=== PATIENT | male | born 1935 | race Caucasian/White ===

== ENCOUNTER 2017-03-18 07:25 | Day surgery (SDC) | payer OTHER ==
[2017-03-18] MEDS ORDERED: NS 500 ML IV 500 ML IV ONE (07:59)
[2017-03-18] MEDS: TETRACAINE 0.5% OPHTH 1 DOSE AFFEYE ONE ×2 (08:15→10:05)
[2017-03-18] MEDS: VIGAMOX 0.5% OPHTH 1 DOSE AFFEYE ONE ×5 (08:16→10:55)
[2017-03-18] MEDS: PROLENSA OPHTH 1 DOSE AFFEYE ONE (08:23)
[2017-03-18] MEDS: ALPHAGAN-P OPHTH 1 DOSE AFFEYE ONE (08:24)
[2017-03-18] MEDS: AK-DILATE 2.5% OPHTH 1 DOSE OP ONE ×3 (08:25→08:27)
[2017-03-18] MEDS: CYCLOGYL 1% OPHTH 1 DOSE OP ONE ×3 (08:25→08:27)
[2017-03-18] MEDS: MYDRIACIL OPHTH 1 DOSE AFFEYE ONE ×3 (08:25→08:27)
[2017-03-18] MEDS: NS 1/2 1000 ML IV 500 ML IV ONE (08:30)
[2017-03-18] MEDS: AK-DILATE 10% OPHTH 1 DOSE AFFEYE ONE (09:01)
[2017-03-18] MEDS: BETADINE OPHTH SOLN 5% EACHEYE ONE (10:05)
[2017-03-18] MEDS: NS 500 ML IV 500 ML IV ONE (10:05)
[2017-03-18] MEDS ORDERED: DIPRIVAN VIAL ONE (10:07)
[2017-03-18] MEDS: XYLOCAINE-MPF 1% IJ ONE ×2 (10:20→10:33)
[2017-03-18] MEDS: ADRENALINE CHL INJ IJ ONE ×2 (10:20→10:33)
[2017-03-18] MEDS: DUOVISC IO ONE ×2 (10:21→10:33)
[2017-03-18] MEDS: BSS OPHTH (PLAIN) 500 ML with VANCOMYCIN HCL 500 MG VIAL 25 MG, ADRENALINE CHL INJ 1 MG IR ONE ×3 (10:22)
[2017-03-18 11:21] VITALS: BP 158/75
== END 2017-03-18 11:20 | disposition home or self-care (01) ==
LOC: SURG1 07:25
PROVIDERS: ATTEND Ophthalmology
PROC: 08U007Z Supplement of Right Eye with Autologous Tissue Substitute, Open Approach (ICD-10-PCS; principal; 2017-03-18 10:30)
PROC: 08BSXZX Excision of Right Conjunctiva, External Approach, Diagnostic (ICD-10-PCS; principal; 2017-03-18 10:30)
PROC: 08DJ3ZZ Extraction of Right Lens, Percutaneous Approach (ICD-10-PCS; principal; 2017-03-18 10:30)
PROC: 08RJ3JZ Replacement of Right Lens with Synthetic Substitute, Percutaneous Approach (ICD-10-PCS; principal; 2017-03-18 10:30)
DX: H25.11 Age-related nuclear cataract, right eye (principal); H25.011 Cortical age-related cataract, right eye; H25.041 Posterior subcapsular polar age-related cataract, right eye; H52.221 Regular astigmatism, right eye; H11.001 Unspecified pterygium of right eye
CPT/HCPCS: 99100; A4217; J0170; J3370; J3490

== ENCOUNTER 2017-04-08 08:30 | Day surgery (SDC) | payer OTHER ==
[2017-04-08] MEDS ORDERED: TETRACAINE 0.5% OPHTH 1 DOSE AFFEYE ONE ×2 (08:40→10:55)
[2017-04-08] MEDS ORDERED: VIGAMOX 0.5% OPHTH 1 DOSE AFFEYE ONE ×5 (08:41→11:21)
[2017-04-08] MEDS ORDERED: PROLENSA OPHTH 1 DOSE AFFEYE ONE (08:52)
[2017-04-08] MEDS ORDERED: ALPHAGAN-P OPHTH 1 DOSE AFFEYE ONE (08:53)
[2017-04-08] MEDS ORDERED: CYCLOGYL 1% OPHTH 1 DOSE OP ONE ×3 (08:54→08:56)
[2017-04-08] MEDS ORDERED: MYDRIACIL OPHTH 1 DOSE AFFEYE ONE ×3 (08:54→08:56)
[2017-04-08] MEDS ORDERED: AK-DILATE 2.5% OPHTH 1 DOSE OP ONE ×3 (08:54→08:56)
[2017-04-08] MEDS ORDERED: NS 500 ML IV 500 ML IV ONE (09:01)
[2017-04-08] MEDS ORDERED: DIPRIVAN VIAL ONE (09:45)
[2017-04-08] MEDS ORDERED: VERSED ONE (09:45)
[2017-04-08] MEDS ORDERED: BETADINE OPHTH SOLN 5% EACHEYE ONE (10:55)
[2017-04-08] MEDS ORDERED: XYLOCAINE-MPF 1% IJ ONE (11:03)
[2017-04-08] MEDS ORDERED: ADRENALINE CHL INJ IJ ONE (11:03)
[2017-04-08] MEDS ORDERED: DUOVISC IO ONE (11:03)
[2017-04-08] MEDS ORDERED: BSS OPHTH (PLAIN) 500 ML with VANCOMYCIN HCL 500 MG VIAL 25 MG, ADRENALINE CHL INJ 1 MG IR ONE ×3 (11:03)
[2017-04-08 11:36] VITALS: BP 156/80
== END 2017-04-08 11:36 | disposition home or self-care (01) ==
LOC: SURG1 08:30
PROVIDERS: ATTEND Ophthalmology
PROC: 08RK3JZ Replacement of Left Lens with Synthetic Substitute, Percutaneous Approach (ICD-10-PCS; principal; 2017-04-08 14:15)
PROC: 08BTXZX Excision of Left Conjunctiva, External Approach, Diagnostic (ICD-10-PCS; principal; 2017-04-08 14:15)
PROC: 08U107Z Supplement of Left Eye with Autologous Tissue Substitute, Open Approach (ICD-10-PCS; principal; 2017-04-08 14:15)
PROC: 08DK3ZZ Extraction of Left Lens, Percutaneous Approach (ICD-10-PCS; principal; 2017-04-08 14:15)
DX: H25.12 Age-related nuclear cataract, left eye (principal); H25.012 Cortical age-related cataract, left eye; H25.042 Posterior subcapsular polar age-related cataract, left eye; H52.222 Regular astigmatism, left eye; H11.002 Unspecified pterygium of left eye
CPT/HCPCS: 99100; A4217; J0170; J2250; J3370; J3490

== ENCOUNTER 2017-12-05 09:19 | Emergency (ER) | payer OTHER ==
[2017-12-05 09:25] VITALS: BP 164/88; BMI 28.8
--- NOTE | 2017-12-05 09:47 | DR.EXTPAIN ---
HPI - Time seen Time seen: 09:36 - PCP Primary Care Physician: LACIE LAZCANO - Complaint/Symptoms Chief Complaint:: PT C/O RIGHT HAND PAIN SWELLING TO THE TOP OF THE HAND AROUND THE FIRST AND SECOND KNUCKLE AND INDEX FINGER AND HE HAS SOME BRUSES TO THE PALM AREA ,, BR Self Treatment fo Chief Complaint: PT C/O USING POST DIGGERS AND HE INJURED HIM SELF USING THEM AND HE HIT A WOODEN GATE.. BR - Nurses notes reviewed Nurses Notes Review: Yes - Source History Provided: Patient - Mode of arrival Mode of Arrival: Ambulatory - Timing Onset of Chief Complaint: 12/04/17 - Associated signs and symptoms Associated Signs and Symptoms: None, Swelling, Bruising PMH - PMH Past Medical History: No Past Surgical History: Yes Surgical History: Unknown Past Surgical History Comment: CATARACT, AND HERNIA . - Family History History of Family Medical Conditions: No - Social History Does patient currently use any type of tobacco product: No Have you used tobacco products in the last 12 months: No Type of Tobacco Use: None Does any household member use tobacco: No Alcohol Use: None Do you use any recreational Drugs:: No Lives With: Family Lives Where: Home - infectious screening In the last 2 months have you had wt loss of >10#?: NO Have you had fever, night sweats or hemotysis?: No Have you traveled outside the country in the last 6 months?: No Isolation: Standard ROS - Review of Systems Constitutional: No Symptoms Reported Eyes: No Symptoms Reported ENTM: No Symptoms Reported Respiratoy: No Symptoms Reported Cardiovascular: No Symptoms Reported Gastrointestinal/Abdominal: No Symptoms Reported Genitourinary: No Symptoms Reported Neurological: No Symptoms Reported Musculoskeletal: Joint Pain (Rt. MCP joints), Joint Swelling (2nd MCP joint, rt. ) Integumentary: Bruises (rt. hand) Hematologic/Lymphatic: No Symptoms Reported Endocrine: No Symptoms Reported Psychiatric: No Symptoms Reported All Other Systems: Reviewed and Negative PE - Vital Signs Vitals: Temperature 96.8 F Pulse Rate 59 Respiratory Rate 20 Blood Pressure 164/88 O2 Sat by Pulse Oximetry 98 - General Limitations: No Limitations General Appearance: Alert, In No Apparent Distress - Head Head Exam: Normal Inspection - Eyes Eye exam: Normal Appearance - ENT ENT Exam: Normal Exam - Neck Neck Exam: Normal Inspection - Chest Chest Inspection: Normal Inspection - Respiratory Respiratory Exam: Normal Lung Sounds Bilat - Cardiovascular Cardiovascular Exam: Regular Rate, Normal Rhythm - Abdominal Exam Abdominal Exam: Normal Inspection, Normal Bowel Sounds, Soft - Upper Extremities Shoulder Exam: Normal Inspection, Full ROM Arm Exam: Normal Inspection, Full ROM Elbow Exam: Normal Inspection, Full ROM Forearm Exam: Normal Inspection, Full ROM Hand Exam: Tenderness (rt. 2nd MCP joint), Swelling (rt. 2nd MCP joint.) Neurosensory Exam: Normal Exam - Back Back Exam: Normal Inspection - Neurological Neurological Exam: Alert, Oriented X3, CN II-XII Intact - Psychiatric Psychiatric Exam: Normal Affect, Normal Mood - Skin Skin Exam: Warm, Dry, Intact, Normal Color ROR - XRAY XRAY Interpreted by: Self (Rt. hand x-ray: a chip fracture at the base of the 2nd proximal phalanx. It is not displaced.) - Diagnosis Discharge Problem: Fracture phalanges, hand - Discharge Plan Disposition: HOME, SELF-CARE Condition: Stable - Follow ups/Referrals Follow ups/Referrals: MATTHEW MESA [Primary Care Provider] - 3 days - Instructions
--- NOTE | 2017-12-05 10:02 | RAD ---
Examination: Right hand, three views History: Trauma, 2nd and 3rd digits Findings: There is an acute intra-articular fracture involving the base of the proximal phalanx, inde x finger. The fracture extends into the 2nd MCP joint. No displacement or deformity is noted although soft tissue swelling is present, as expected. Degenerative changes are present in the wrist. Very sm all metallic foreign fragments are present in the thumb. Impression: Intra-articular fracture involves the proximal phalanx of the right index finger. Reported By:
== END 2017-12-05 10:30 | disposition home or self-care (01) ==
LOC: ER 09:19
DX: S62.610A Displaced fracture of proximal phalanx of right index finger, initial encounter for closed fracture (principal); X58.XXXA Exposure to other specified factors, initial encounter; Y92.9 Unspecified place or not applicable
CPT/HCPCS: 73130; 99282

== ENCOUNTER → 2017-12-15 | Outpatient (CLI) | payer OTHER ==
[2017-12-05 09:25] VITALS: BP 164/88
--- NOTE | 2017-12-15 10:44 | RAD ---
HISTORY: Right index finger fracture Study: Right hand: Three views Comparison: 12/05/2017 Findings: There is again noted to be a fracture through the base of the proximal phalanx of the right index fin [place]. This is minimally distracted. It is unchanged in position or alignment. There is severe degen erative change in the scaphotrapezium and scaphotrapezoid articulation. Subchondral cyst formation i s noted in the proximal pole of the scaphoid. Moderate degenerative changes noted in the 1st carpal metacarpal joint. [id number]-[id number] is noted in other joints. Mild is noted in the interphalangeal j oint of the thumb. There is a small bony exostosis involving the shaft of the proximal phalanx of th e 5th digit, unchanged. IMPRESSION: 1. Fracture of the base of the proximal phalanx of the index finger as described above. This shows no significant change when compared to the prior examination. 2. Degenerative change as noted. Reported By:
== END ==
LOC: RAD 09:16
PROVIDERS: ATTEND Nurse Practitioner Family
DX: S62.640D Nondisplaced fracture of proximal phalanx of right index finger, subsequent encounter for fracture with routine healing (principal); X58.XXXD Exposure to other specified factors, subsequent encounter
CPT/HCPCS: 73130

== ENCOUNTER 2018-12-02 11:44 | Inpatient (IN) ==
[2018-12-02 11:49] VITALS: BMI 25.7
[2018-12-02 12:38] LABS: BILIRUBIN,URINE NEGATIVE (NEGATIVE); BLOOD/HEMOGLOBIN,URINE 3+ (NEGATIVE); GLUCOSE, URINE NEGATIVE (NEGATIVE); KETONES,URINE NEGATIVE (NEGATIVE); LEUKOCYTE ESTERASE ,URINE NEGATIVE (NEGATIVE); NITRITES,URINE NEGATIVE (NEGATIVE); PROTEIN,URINE 1+ (NEGATIVE); UROBILINOGEN,URINE NORMAL (NORMAL)
[2018-12-02 12:46] LABS: APPEARANCE,URINE CLEAR (CLEAR); BACTERIA,URINE NEGATIVE /HPF (NEGATIVE); COLOR,URINE YELLOW (YELLOW); SQUAMOUS EPITHELIAL CELL,UR RARE /HPF (NEGATIVE)
--- NOTE | 2018-12-02 14:06 | DR.GENAD ---
HPI Time Seen Time Seen by Provider: 12/02/18 13:56 PCP Primary Care Physician: LACIE LAZCANO HPI Comment HPI Comment: PATIENT IS 82YR OLD WHITE MALE WHO HAVE ENLARGE PROSTATE AND WAS HAVING DECREASE URINE OUT PUT AND DRIBBLING. CT DONE AND LABS DONE. BLADDER WAS DISTENDED WITH URINE AND CR. WAS ELEVATED. HE IS HERE FOR FURTHER EVALUATION FOR POST OBSTRUCTIVE RENAL FAILURE. Complaint/Symptoms Chief Complaint Doctors Comments: URINARY RETENSION AND ABNORMAL CT AND LABS DONE OUT PATIENT. Chief Complaint:: PT SENT OVER TO BE EVALUATED FOR HIS ABN CT OF ABD AND PELVIS ,,, SEE REPORT Self Treatment fo Chief Complaint: PT C/O HAVING PRESSURE TO HIS ABD AND TROUBLE URINATING , PT C/O FREQUENCY AND DRIBBLING ,BR Nurses notes reviewed Nurses Notes Review: Yes Source History Provided: Patient and Family Member Mode of Arrival Mode of Arrival: Ambulatory Timing Onset of Chief Complaint: 11/25/18 Came on: Gradually Duration Duration: Constant Duration: Weeks Severity Severity: Severe Modifying Factors Worsens:: WITH DECREASE URINATION, PAIN WORSE. PMH PMH Past Medical History: No Past Surgical History: Yes Past Surgical History Comment: HERNIA REPAIR Family History History of Family Medical Conditions: Yes Social History Does patient currently use any type of tobacco product: No Have you used tobacco products in the last 12 months: No Type of Tobacco Use: None Does any household member use tobacco: No Alcohol Use: None Do you use any recreational Drugs:: No Lives With: Family Lives Where: Home infectious screening In the last 2 months have you had wt loss of >10#?: NO Have you had fever, night sweats or hemotysis?: No Have you traveled outside the country in the last 6 months?: No Isolation: [place]/Negative Pressure ROS Review of Systems Constitutional: No Symptoms Reported Eyes: No Symptoms Reported ENTM: No Symptoms Reported Respiratoy: No Symptoms Reported Cardiovascular: No Symptoms Reported Gastrointestinal/Abdominal: Abdominal Pain Genitourinary: Frequency and Other (DECREASE URINATION.) Neurological: No Symptoms Reported Musculoskeletal: No Symptoms Reported Integumentary: No Symptoms Reported Hematologic/Lymphatic: No Symptoms Reported Endocrine: No Symptoms Reported Psychiatric: No Symptoms Reported All Other Systems: Reviewed and Negative PE Vital Signs Vitals: Temperature 98.5 F Pulse Rate [Bilateral] 77 Pulse Rate 69 Respiratory Rate 18 Blood Pressure [Left Arm] 133/77 Blood Pressure 199/87 O2 Sat by Pulse Oximetry 97 General Limitations: No Limitations General Appearance: Alert and In No Apparent Distress Head Head Exam: Normal Inspection Eyes Eye exam: Normal Appearance ENT ENT Exam: Normal Exam External Ear Exam: Normal External Inspection TM/Canal Exam: Bilateral: Normal Nose Exam: Normal Nose Exam Mouth Exam: Normal Inspection Throat Exam: Normal Inspection Neck Neck Exam: Normal Inspection Chest Chest Inspection: Normal Inspection Respiratory Respiratory Exam: Normal Lung Sounds Bilat Respiratory Exam: Bilateral: Clear to Auscultation Cardiovascular Cardiovascular Exam: Regular Rate and Normal Rhythm Abdominal Exam Abdominal Exam: Normal Bowel Sounds, Soft and Tenderness Abdominal Tenderness: RLQ, LLQ and Suprapubic Extremities Extremities Exam: Normal Inspection Back Back Exam: Normal Inspection Neurologic Neurological Exam: Alert and Oriented X3 Psychiatric Psychiatric Exam: Normal Affect and Normal Mood Skin Skin Exam: Warm, Dry, Intact and Normal Color MDM Additional Information Additional Information Obtained From: Family Differential Diagnosis Differential Diagnosis: URINARY RETENSION, ACUTE RENAL FAILURE/POST OBSTRUCTIVE, ENLARGE PROSTATE. COURSE Treatment Treatment: SEE ORDERS. Consultation Consultation Comments: UROLOGIST DR. ATKINSON WILL FOLLOW UP PATIENT WHEN RENAL FAILURE RESOLVE. TO KEEP SHORT CATH IN TILL THAT TIME. DR. DU WILL ADMIT PATIENT. Education/Counseling Education/Counseling: Patient and Family Educated On: Diagnosis ROR Labs Reviewed Laboratory Results Reviewed?: Yes Result Diagrams: 12/04/18 04:20 12/04/18 04:20 Laboratory: WBC 8.9 X10^3/uL (3.6-10.0) 12/04/18 04:20 RBC 4.57 X10^6/uL (4.7-6.0) L 12/04/18 04:20 Hgb 13.6 g/dL (13.5-18.0) 12/04/18 04:20 Hct 40.7 % (42.0-54.0) L 12/04/18 04:20 MCV 89.0 fL (80.0-100.0) 12/04/18 04:20 MCH 29.8 pg (27.0-34.0) 12/04/18 04:20 MCHC 33.4 g/dL (33.0-35.0) 12/04/18 04:20 RDW 14.7 % (11.6-16.5) 12/04/18 04:20 Plt Count 177 X10^3/uL (150.0-450.0) 12/04/18 04:20 MPV 9.7 fL (7.4-11.0) 12/04/18 04:20 Neut % (Auto) 69.2 % (42.0-75.0) 12/04/18 04:20 Lymph % (Auto) 11.6 % (21.0-51.0) L 12/04/18 04:20 [place] % (Auto) 14.9 % (0.0-13.0) H 12/04/18 04:20 Eos % (Auto) 3.9 % (0.9-2.9) H 12/04/18 04:20 Baso % (Auto) 0.4 % (0.2-1.0) 12/04/18 04:20 Neut # (Auto) 6.1 x10^3/uL (2.2-4.8) H 12/04/18 04:20 Lymph # (Auto) 1.0 X10^3/uL (1.3-2.9) L 12/04/18 04:20 [place] # (Auto) 1.3 x10^3/uL (0.3-0.8) H 12/04/18 04:20 Eos # (Auto) 0.3 x10^3/uL (0.0-0.2) H 12/04/18 04:20 Baso # (Auto) 0.0 X10^3/uL (0.0-0.1) 12/04/18 04:20 Absolute Nucleated RBC 0.1 /100WBC 12/04/18 04:20 Sodium 140 mmol/L (136-145) 12/04/18 04:20 Corrected Sodium TNP 12/04/18 04:20 Potassium 4.2 mmol/L (3.5-5.1) 12/04/18 04:20 Chloride 104 mmol/L (98-107) 12/04/18 04:20 Carbon Dioxide 28.8 mmol/L (21-32) 12/04/18 04:20 BUN 20 mg/dL (7-18) H 12/04/18 04:20 Creatinine 1.17 mg/dL (0.70-1.30) 12/04/18 04:20 Est GFR (MDRD) Af Amer > 60 (>60) 12/04/18 04:20 Est GFR (MDRD) Non-Af > 60 (>60) 12/04/18 04:20 Glucose 103 mg/dL (65-99) H 12/04/18 04:20 Calcium 8.4 mg/dL (8.5-10.1) L 12/04/18 04:20 Corrected Calcium 9.4 mg/dL (8.5-10.1) 12/04/18 04:20 Total Bilirubin 0.30 mg/dL (0.2-1.0) 12/04/18 04:20 AST 17 Units/L (15-37) 12/04/18 04:20 ALT 13 Units/L (12-78) 12/04/18 04:20 Alkaline Phosphatase 51 Units/L (46-116) 12/04/18 04:20 Lactate Dehydrogenase 195 Units/L (85-227) 12/03/18 04:00 Total Protein 6.5 g/dL (6.4-8.2) 12/04/18 04:20 Albumin 2.8 g/dL (3.4-5.0) L 12/04/18 04:20 Globulin 3.7 g/dL (2.5-4.5) 12/04/18 04:20 Albumin/Globulin Ratio 0.8 Ratio (1.1-2.1) L 12/04/18 04:20 Triglycerides 74 mg/dL (0-150) 12/03/18 04:00 Cholesterol 166 mg/dL (0-200) 12/03/18 04:00 LDL Cholesterol, Calc 84 mg/dL (0-100) 12/03/18 04:00 HDL Cholesterol 67 mg/dL (40-60) H 12/03/18 04:00 Cholesterol/HDL Ratio 2.5 (0.0-5.0) 12/03/18 04:00 Total PSA 7.60 ng/mL (0.13-4.0) H 12/03/18 04:00 Free T4 1.09 ng/dL (0.76-1.46) 12/03/18 04:00 TSH 3rd Generation 1.630 uIU/mL (0.358-3.74) 12/03/18 04:00 Specimen Type Catherized urine 12/03/18 03:35 Urine Color Red (YELLOW) 12/03/18 03:35 Urine Appearance Cloudy (CLEAR) 12/03/18 03:35 Urine pH 8.0 (5.0 - 8.0) 12/03/18 03:35 Ur Specific [place] 1.015 (1.000-1.030) 12/03/18 03:35 Urine Protein 4+ (NEGATIVE) 12/03/18 03:35 Urine Glucose (UA) Negative (NEGATIVE) 12/03/18 03:35 Urine Ketones Negative (NEGATIVE) 12/03/18 03:35 Urine Occult Blood 5+ (NEGATIVE) 12/03/18 03:35 Urine Nitrite Negative (NEGATIVE) 12/03/18 03:35 Urine Bilirubin Negative (NEGATIVE) 12/03/18 03:35 Urine Urobilinogen Normal (NORMAL) 12/03/18 03:35 Ur Leukocyte Esterase 1+ (NEGATIVE) 12/03/18 03:35 Urine RBC Tntc /HPF (NONE SEEN) 12/03/18 03:35 Urine WBC 0-2 /HPF (NONE SEEN) 12/03/18 03:35 Ur Squamous Epith Cells Negative /HPF (NEGATIVE) 12/03/18 03:35 Urine Bacteria Negative /HPF (NEGATIVE) 12/03/18 03:35 Ur Culture Indicated? No/not indicated 12/03/18 03:35 XRAY XRAY Interpreted by: Radiologist XRAY Findings: REPORT ON RECORD DISCUSS WITH PATIENT AND HIS AND WAS NOTED. Instructions Instructions: Fall Prevention in the Home, Adult, [id number] Indwelling Urinary Catheter Care, Adult, Amlg-jx-Rvvy Hydronephrosis Prostatitis, [id number]-[id number] Acute Urinary Retention, Male, Odeg-pj-Paoa Pulmonary Nodule, Dgsc-fz-Kuvh Forms: Patient Portal
[2018-12-02] MEDS ORDERED: NS 1000 ML 1,000 ML ONE (14:22)
[2018-12-02 15:03] LABS: BASOPHILS % (AUTO) 0.4 % (0.2-1.0); EOSINOPHILS # (AUTO) 0.1 x10^3/uL (0.0-0.2); EOSINOPHILS % (AUTO) 0.7 % (0.9-2.9); HEMATOCRIT 38.9 % (42.0-54.0); HEMOGLOBIN 13.1 g/dL (13.5-18.0); LYMPHOCYTES # (AUTO) 0.6 X10^3/uL (1.3-2.9); LYMPHOCYTES % (AUTO) 6.2 % (21.0-51.0); MEAN CORPUSCULAR HGB CONC 33.6 g/dL (33.0-35.0); MEAN CORPUSCULAR VOLUME 89.1 fL (80.0-100.0); MONOCYTES # (AUTO) 0.7 x10^3/uL (0.3-0.8); MONOCYTES % (AUTO) 7.4 % (0.0-13.0); NEUTROPHILS # (AUTO) 8.4 x10^3/uL (2.2-4.8); NEUTROPHILS % (AUTO) 85.3 % (42.0-75.0); PLATELET COUNT 185 X10^3/uL (150.0-450.0); RED BLOOD COUNT 4.37 X10^6/uL (4.7-6.0); RED CELL DISTRIBUTION WIDTH 14.4 % (11.6-16.5); WHITE BLOOD COUNT 9.9 X10^3/uL (3.6-10.0)
[2018-12-02] MEDS: NS 1000 ML 1,000 ML IV SCH (16:20)
[2018-12-02] MEDS: RESTORIL CAP 15 MG PO PRN (23:46)
[2018-12-03 03:40] LABS: BILIRUBIN,URINE NEGATIVE (NEGATIVE); BLOOD/HEMOGLOBIN,URINE 5+ (NEGATIVE); GLUCOSE, URINE NEGATIVE (NEGATIVE); KETONES,URINE NEGATIVE (NEGATIVE); LEUKOCYTE ESTERASE ,URINE 1+ (NEGATIVE); NITRITES,URINE NEGATIVE (NEGATIVE); PROTEIN,URINE 4+ (NEGATIVE); UROBILINOGEN,URINE NORMAL (NORMAL)
[2018-12-03 03:53] LABS: APPEARANCE,URINE CLOUDY (CLEAR); COLOR,URINE RED (YELLOW)
[2018-12-03 03:54] LABS: RBC,URINE TNTC /HPF (NONE SEEN); SQUAMOUS EPITHELIAL CELL,UR NEGATIVE /HPF (NEGATIVE)
[2018-12-03 03:55] LABS: BACTERIA,URINE NEGATIVE /HPF (NEGATIVE)
[2018-12-03] MEDS: NS 1000 ML 1,000 ML IV SCH ×2 (04:29→18:03)
[2018-12-03 05:23] LABS: BASOPHILS % (AUTO) 0.2 % (0.2-1.0); EOSINOPHILS # (AUTO) 0.2 x10^3/uL (0.0-0.2); EOSINOPHILS % (AUTO) 1.8 % (0.9-2.9); HEMOGLOBIN 13.6 g/dL (13.5-18.0); LYMPHOCYTES # (AUTO) 0.7 X10^3/uL (1.3-2.9); LYMPHOCYTES % (AUTO) 7.9 % (21.0-51.0); MEAN CORPUSCULAR HGB CONC 33.2 g/dL (33.0-35.0); MEAN CORPUSCULAR VOLUME 90.3 fL (80.0-100.0); MEAN PLATELET VOLUME 9.1 fL (7.4-11.0); MONOCYTES # (AUTO) 1.1 x10^3/uL (0.3-0.8); NEUTROPHILS # (AUTO) 6.8 x10^3/uL (2.2-4.8); NEUTROPHILS % (AUTO) 77.1 % (42.0-75.0); PLATELET COUNT 184 X10^3/uL (150.0-450.0); RED BLOOD COUNT 4.54 X10^6/uL (4.7-6.0); RED CELL DISTRIBUTION WIDTH 14.6 % (11.6-16.5); WHITE BLOOD COUNT 8.8 X10^3/uL (3.6-10.0)
[2018-12-03 05:40] LABS: CALCIUM 8.6 mg/dL (8.5-10.1); CARBON DIOXIDE 28.7 mmol/L (21-32); COR CA(FOR HYPOALB) 9.4 mg/dL (8.5-10.1); CREATININE 1.75 mg/dL (0.70-1.30); TOTAL PROTEIN 6.8 g/dL (6.4-8.2)
[2018-12-03] MEDS: MICRO K EXTEN CAP 10 MEQ PO SCH (08:10)
[2018-12-03] MEDS: SYNTHROID 50 mcg TAB PO SCH (08:10)
[2018-12-03] MEDS ORDERED: HYDROCHLOROTHIAZIDE 25 MG TAB PO SCH (09:00)
[2018-12-03] MEDS ORDERED: VITAMIN D (1.25MG) PO SCH (09:00)
[2018-12-03 09:09] LABS: CHOL/HDL RATIO 2.5 (0.0-5.0); FREE T4 (FREE THYROXINE) 1.09 ng/dL (0.76-1.46); TSH (3RD GENERATION) 1.63 uIU/mL (0.358-3.74)
[2018-12-03 09:11] LABS: TOTAL PSA 7.6 ng/mL (0.13-4.0)
[2018-12-03] MEDS: ROCEPHIN VIAL 1 GRAM IVP SCH (09:59)
--- NOTE | 2018-12-03 18:36 | DR.H&P ---
H&P - History & Physical for Day of: H&P Date: 12/02/18 - Chief Complaint Chief Complaint: LOWER ABDOMINAL PAIN, "DRIBBLE" DECREASED URINE OUTPUT, ELEVATED BLOOD PRESSURE - History of Present Illness History of Present Illness: 82 WM ER ADMISSION AFTER PRESENTING WITH CO LOWER ABDOMINAL PAIN AND PRESSURE WITH DECREASED URINE OUTPT. PT STATES DRIBBLING HAS BEEN WORSE FOR 1-2 WEEKS, BECAME SEVERE ONE DAY AGO AND PCP YESSENIA MESA ORDERED CT ABD/PELVIS. PT HAD BILATERAL HYDRONEPHROSIS DUE TO ENLARGED PROSTATE. PT HAD ELEVATE BP AND ACUTE RENAL INSUFFICIENCY WITHOUT HX. PT HAD PMH OF HYPOTHYROIDISM. PT ADMITTED FOR TREATMENT OF ACUTE OBSTRUCTIVE HYDRONEPHROSIS AND EVALUATION OF ABNORMAL RADIOLOGICAL FINDINGS. - Past Medical History Past Medical History: Arthritis, Hypothyroidism - Past Surgical History Surgical History: Bowel Resection - Family History Family Medical History: Cancer, [place], Coronary Artery Disease, Hypertension - Social History Does patient currently use any type of tobacco product: No Have you used tobacco products in the last 12 months: No Type of Tobacco Use: None Does any household member use tobacco: No Alcohol Use: None Drug Use: None - Medications Home Medications: No Known Drug Allergies Allergy (Verified 12/02/18 11:45) CONTINUE taking the following medications ciprofloxacin HCl 500 mg PO BID 12/02/18 [History] cyanocobalamin (vitamin B-12) 1 ml IM MONTHLY 12/02/18 [History] ergocalciferol (vitamin D2) [Vitamin D2] 50,000 tab-cap PO DAILY 12/02/18 [His tory] hydrochlorothiazide 25 mg PO DAILY 12/02/18 [History] levothyroxine 50 mcg PO DAILY 12/02/18 [History] potassium chloride 10 meq PO DAILY 12/02/18 [History] - Review of Systems Constitutional: Weakness Eyes: No Symptoms Reported ENT: No Symptoms Reported Respiratory: No Symptoms Reported Cardiovascular: Other (ELEVATED BLOOD PRESSURE) Gastrointestinal: No Symptoms Reported Genitourinary: No Symptoms Reported Musculoskeletal: No Symptoms Reported Skin: No Symptoms Reported Neurological: Weakness - Physical Exam Vital Signs: Temperature 97.5 F Pulse Rate [Bilateral] 72 Pulse Rate 69 Respiratory Rate 20 Blood Pressure [Left Arm] 139/86 Blood Pressure 199/87 O2 Sat by Pulse Oximetry 97 Oriented: Normal Eyes: Normal Ear: Normal Nose: Normal Throat: Normal Respiratory: RLL Diminished, LLL Diminished Cardiovascular: Normal : Normal Auscultation: Bowel Sounds: Normal Palpation: Normal Tenderness: Suprapubic, Moderate Skin: Normal Musculoskeletal: Back:Thoracic, Back:Lumbar Psychiatric: Normal Mood Description: Calm Speech Pattern: Clear, Appropriate - Assessment/Plan (1) Acute renal insufficiency Status: Acute (2) Hydronephrosis Status: Acute Plan: ADMIT, SHORT CATH. STRICT I&OS, GENTLE IV HYDRATION AND ENCOURAGE PO HYDRATION. BP CONTROL, REVIEWED CT ABD/PELVIS WITH PT. OBTAIN PSA, FLP, TSH FREE T4 (3) Prostatitis, acute Status: Acute (4) Urinary retention with incomplete bladder emptying Status: Acute (5) Pulmonary nodule Status: Acute Plan: CT CHEST WITH CONTRAST (6) Lytic bone lesion of hip Status: Acute Plan: NUCLEAR BONE SCAN - Allergies Allergies/Adverse Reactions: Allergies Allergy/AdvReac Type Severity Reaction Status Date / Time No Known Drug Allergies Allergy Verified 12/02/18 11:45
--- NOTE | 2018-12-03 18:50 | PCM.PROG ---
Progress Note - Progress Note for Day of Date of Exam: 12/03/18 - Subjective Subjective: 82 WM ER ADMISSION WITH BILATERAL HYDRONEPHROSIS DUE TO PROSTATE OBSTRUCTION WITH ACUTE RENAL INSUFFICIENCY. PT HAS SHORT CATH PLACEMENT ON ADMISSION WITH GOOD URINE OUT PUT. PT REPORTS IMPROVING LOWER ABDOMINAL TENDERNESS. PT BUN 30, CREAT 1.75. ADDED PSA, FLP AND THYROID LABS AND REVIEWED RESULTS AND CT WITH PT AND FAMILY. WILL CONTINUE IV ROCEPHIN, OBTAIN CT CHEST WITH CONTRAST TO EVALUATE ABNORMAL LUNG FINDINGS ON CT. PT BP IS IMPROVED THIS AM. - Past Medical Family Social History Past Med/Fam/Surg Hx: No changes since H&P Allergies: Allergies No Known Drug Allergies Allergy (Verified 12/02/18 11:45) - Review of Systems ROS: No change since H&P - Vital Signs and I&O's Vital Signs: Temperature 97.5 F Pulse Rate [Bilateral] 72 Pulse Rate 69 Respiratory Rate 20 Blood Pressure [Left Arm] 139/86 Blood Pressure 199/87 O2 Sat by Pulse Oximetry 97 Intake and Output: Intake & Output 12/01/18 12/02/18 12/03/18 12/04/18 11:59 11:59 11:59 11:59 Intake Total 760 / 760 1720 / 1720 Output Total 6400 / 6400 1900 / 1900 Balance -5640 / -5640 -180 / -180 - Physical Exam Oriented: Normal Eyes: Normal Ear: Normal Nose: Normal Throat: Normal Respiratory: Diminished Cardiovascular: Normal : Normal Auscultation: Bowel Sounds: Normal Tenderness: Suprapubic, Mild Skin: Normal Musculoskeletal: Back:Thoracic, Back:Lumbar Psychiatric: Normal Mood Description: Calm Speech Pattern: Clear, Appropriate - Laboratory and Diagnostics Result Diagrams: 12/03/18 04:00 12/03/18 04:00 Labs: Laboratory WBC 8.8 X10^3/uL (3.6-10.0) 12/03/18 04:00 RBC 4.54 X10^6/uL (4.7-6.0) L 12/03/18 04:00 Hgb 13.6 g/dL (13.5-18.0) 12/03/18 04:00 Hct 41.0 % (42.0-54.0) L 12/03/18 04:00 MCV 90.3 fL (80.0-100.0) 12/03/18 04:00 MCH 30.0 pg (27.0-34.0) 12/03/18 04:00 MCHC 33.2 g/dL (33.0-35.0) 12/03/18 04:00 RDW 14.6 % (11.6-16.5) 12/03/18 04:00 Plt Count 184 X10^3/uL (150.0-450.0) 12/03/18 04:00 MPV 9.1 fL (7.4-11.0) 12/03/18 04:00 Neut % (Auto) 77.1 % (42.0-75.0) H 12/03/18 04:00 Lymph % (Auto) 7.9 % (21.0-51.0) L 12/03/18 04:00 [place] % (Auto) 13.0 % (0.0-13.0) 12/03/18 04:00 Eos % (Auto) 1.8 % (0.9-2.9) 12/03/18 04:00 Baso % (Auto) 0.2 % (0.2-1.0) 12/03/18 04:00 Neut # (Auto) 6.8 x10^3/uL (2.2-4.8) H 12/03/18 04:00 Lymph # (Auto) 0.7 X10^3/uL (1.3-2.9) L 12/03/18 04:00 [place] # (Auto) 1.1 x10^3/uL (0.3-0.8) H 12/03/18 04:00 Eos # (Auto) 0.2 x10^3/uL (0.0-0.2) 12/03/18 04:00 Baso # (Auto) 0.0 X10^3/uL (0.0-0.1) 12/03/18 04:00 Absolute Nucleated RBC 0.0 /100WBC 12/03/18 04:00 Sodium 140 mmol/L (136-145) 12/03/18 04:00 Corrected Sodium 141 mmol/L (136-145) 12/03/18 04:00 Potassium 4.0 mmol/L (3.5-5.1) 12/03/18 04:00 Chloride 103 mmol/L (98-107) 12/03/18 04:00 Carbon Dioxide 28.7 mmol/L (21-32) 12/03/18 04:00 BUN 30 mg/dL (7-18) H 12/03/18 04:00 Creatinine 1.75 mg/dL (0.70-1.30) H 12/03/18 04:00 Est GFR (MDRD) Af Amer 48 (>60) L 12/03/18 04:00 Est GFR (MDRD) Non-Af 40 (>60) L 12/03/18 04:00 Glucose 121 mg/dL (65-99) H 12/03/18 04:00 Calcium 8.6 mg/dL (8.5-10.1) 12/03/18 04:00 Corrected Calcium 9.4 mg/dL (8.5-10.1) 12/03/18 04:00 Total Bilirubin 0.50 mg/dL (0.2-1.0) 12/03/18 04:00 AST 14 Units/L (15-37) L 12/03/18 04:00 ALT 15 Units/L (12-78) 12/03/18 04:00 Alkaline Phosphatase 57 Units/L (46-116) 12/03/18 04:00 Lactate Dehydrogenase 195 Units/L (85-227) 12/03/18 04:00 Total Protein 6.8 g/dL (6.4-8.2) 12/03/18 04:00 Albumin 3.0 g/dL (3.4-5.0) L 12/03/18 04:00 Globulin 3.8 g/dL (2.5-4.5) 12/03/18 04:00 Albumin/Globulin Ratio 0.8 Ratio (1.1-2.1) L 12/03/18 04:00 Triglycerides 74 mg/dL (0-150) 12/03/18 04:00 Cholesterol 166 mg/dL (0-200) 12/03/18 04:00 LDL Cholesterol, Calc 84 mg/dL (0-100) 12/03/18 04:00 HDL Cholesterol 67 mg/dL (40-60) H 12/03/18 04:00 Cholesterol/HDL Ratio 2.5 (0.0-5.0) 12/03/18 04:00 Total PSA 7.60 ng/mL (0.13-4.0) H 12/03/18 04:00 Free T4 1.09 ng/dL (0.76-1.46) 12/03/18 04:00 TSH 3rd Generation 1.630 uIU/mL (0.358-3.74) 12/03/18 04:00 Specimen Type Catherized urine 12/03/18 03:35 Urine Color Red (YELLOW) 12/03/18 03:35 Urine Appearance Cloudy (CLEAR) 12/03/18 03:35 Urine pH 8.0 (5.0 - 8.0) 12/03/18 03:35 Ur Specific [place] 1.015 (1.000-1.030) 12/03/18 03:35 Urine Protein 4+ (NEGATIVE) 12/03/18 03:35 Urine Glucose (UA) Negative (NEGATIVE) 12/03/18 03:35 Urine Ketones Negative (NEGATIVE) 12/03/18 03:35 Urine Occult Blood 5+ (NEGATIVE) 12/03/18 03:35 Urine Nitrite Negative (NEGATIVE) 12/03/18 03:35 Urine Bilirubin Negative (NEGATIVE) 12/03/18 03:35 Urine Urobilinogen Normal (NORMAL) 12/03/18 03:35 Ur Leukocyte Esterase 1+ (NEGATIVE) 12/03/18 03:35 Urine RBC Tntc /HPF (NONE SEEN) 12/03/18 03:35 Urine WBC 0-2 /HPF (NONE SEEN) 12/03/18 03:35 Ur Squamous Epith Cells Negative /HPF (NEGATIVE) 12/03/18 03:35 Urine Bacteria Negative /HPF (NEGATIVE) 12/03/18 03:35 Ur Culture Indicated? No/not indicated 12/03/18 03:35 - Plan (1) Acute renal insufficiency Status: Acute Plan: GENTLE IV HYDRATION. STRITCT I & OS, BP MONITORING. REPEAT AM LABS (2) Hydronephrosis Status: Acute Plan: SHORT CATH. STRICT I&OS, GENTLE IV HYDRATION AND ENCOURAGE PO HYDRATION. BP CONTROL, REVIEWED CT ABD/PELVIS WITH PT. OBTAIN PSA, FLP, TSH FREE T4 (3) Prostatitis, acute Status: Acute (4) Urinary retention with incomplete bladder emptying Status: Acute (5) Pulmonary nodule Status: Acute Plan: CT CHEST WITH CONTRAST (6) Lytic bone lesion of hip Status: Acute Plan: NUCLEAR BONE SCAN
[2018-12-03] MEDS: RESTORIL CAP 15 MG PO PRN (21:12)
[2018-12-04 05:25] LABS: ALANINE AMINOTRANSFERASE 13 Units/L (12-78); ALBUMIN 2.8 g/dL (3.4-5.0); ALKALINE PHOSPHATASE 51 Units/L (46-116); ASPARTATE AMINO TRANSFERASE 17 Units/L (15-37); BLOOD UREA NITROGEN 20 mg/dL (7-18); CALCIUM 8.4 mg/dL (8.5-10.1); CARBON DIOXIDE 28.8 mmol/L (21-32); CHLORIDE 104 mmol/L (98-107); COR CA(FOR HYPOALB) 9.4 mg/dL (8.5-10.1); CREATININE 1.17 mg/dL (0.70-1.30); SODIUM 140 mmol/L (136-145); TOTAL PROTEIN 6.5 g/dL (6.4-8.2); eGFR NON BLACK RACES > 60 (>60)
[2018-12-04 05:35] LABS: BASOPHILS % (AUTO) 0.4 % (0.2-1.0); EOSINOPHILS # (AUTO) 0.3 x10^3/uL (0.0-0.2); EOSINOPHILS % (AUTO) 3.9 % (0.9-2.9); HEMATOCRIT 40.7 % (42.0-54.0); HEMOGLOBIN 13.6 g/dL (13.5-18.0); LYMPHOCYTES % (AUTO) 11.6 % (21.0-51.0); MEAN CORPUSCULAR HEMOGLOBIN 29.8 pg (27.0-34.0); MEAN CORPUSCULAR HGB CONC 33.4 g/dL (33.0-35.0); MEAN PLATELET VOLUME 9.7 fL (7.4-11.0); MONOCYTES # (AUTO) 1.3 x10^3/uL (0.3-0.8); MONOCYTES % (AUTO) 14.9 % (0.0-13.0); NEUTROPHILS # (AUTO) 6.1 x10^3/uL (2.2-4.8); NEUTROPHILS % (AUTO) 69.2 % (42.0-75.0); PLATELET COUNT 177 X10^3/uL (150.0-450.0); RED BLOOD COUNT 4.57 X10^6/uL (4.7-6.0); RED CELL DISTRIBUTION WIDTH 14.7 % (11.6-16.5); WHITE BLOOD COUNT 8.9 X10^3/uL (3.6-10.0)
--- NOTE | 2018-12-04 07:24 | CT ---
HISTORY: Pulmonary nodules Study: CT chest with contrast Comparison: CT abdomen pelvis 12/02/2018 Technique: Axial post-contrast images with coronal and sagittal reformats. Dose reduction procedures were used with mA/kv adjusted for body size. Findings: Examination of the mediastinum demonstrated no evidence for mediastinal masses, enlarged mediastinal or hilar adenopathy, aortic abnormality, or pleural effusions. Coronary artery calcifications are present. No chest wall or axillary abnormality is identified. Those portions of the upper abdominal organs visualized were within normal limits. The previously noted bilateral hydronephrosis is no longer present. Calcified pleural plaques are present on the right and the left suspicious for prior asbestos exposure. Multiple bilateral predominantly peripheral sub 0.5 cm pulmonary nodules are identified. The should be followed with CT examination in 6 months. There is also some tree-in-bud inflammatory change peripherally in the left upper lobe. No masses, alveolar infiltrates, areas of consolidation, peribronchial thickening, or bronchiectasis is identified. IMPRESSION: Bilateral pleural calcifications suggestive of the possibility of prior asbestos exposure Multiple bilateral sub 0.5 cm noncalcified pulmonary nodules for which follow-up chest CT in 6 months is recommended. Reported By:
[2018-12-04] MEDS: NS 1000 ML 1,000 ML IV SCH (08:02)
[2018-12-04] MEDS: ROCEPHIN VIAL 1 GRAM IVP SCH (08:03)
[2018-12-04] MEDS: SYNTHROID 50 mcg TAB PO SCH (08:03)
[2018-12-04] MEDS: MICRO K EXTEN CAP 10 MEQ PO SCH (08:03)
--- NOTE | 2018-12-04 16:16 | NM ---
HISTORY: Abdominal pain, swollen prostate Study: Nuclear medicine whole-body bone scan Comparison: None Technique: Whole body bone scintigraphy was performed in the anterior and posterior projection after the intravenous administration of 26.7 mCi of technetium 99 M MDP. Findings: Physiologic distribution of radiotracer is observed throughout the appendicular and axial skeleton. Mild radiotracer uptake seen within the shoulders, wrist, and sacroiliac joints likely represents degenerative change. No definite focal asymmetric areas of intense radiotracer uptake are appreciated within the left iliac wing corresponding to the sclerotic focus on prior CT of the abdomen and pelvis performed on December 02, 2018. Radiotracer uptake is noted within the urinary bladder consistent with excretion of the radiopharmaceutical. IMPRESSION: No gross abnormalities are appreciated as noted above. Reported By:
[2018-12-04 16:59] VITALS: BP 146/71
[2018-12-15] MEDS ORDERED: VITAMIN D (1.25MG) PO SCH (10:00)
== END 2018-12-04 16:50 | disposition home or self-care (01) | DRG 683 ==
LOC: ER 11:44 → MED/SURG 15:14
PROVIDERS: ADMIT Internal Medicine; ATTEND Internal Medicine
DX: I10 Essential (primary) hypertension; R10.84 Generalized abdominal pain; E03.8 Other specified hypothyroidism; M54.5 Low back pain; N40.1 Benign prostatic hyperplasia with lower urinary tract symptoms; R91.8 Other nonspecific abnormal finding of lung field; R33.8 Other retention of urine; R10.33 Periumbilical pain; K57.90 Diverticulosis of intestine, part unspecified, without perforation or abscess without bleeding; N30.01 Acute cystitis with hematuria; N41.0 Acute prostatitis; N13.8 Other obstructive and reflux uropathy; N13.39 Other hydronephrosis; R94.4 Abnormal results of kidney function studies; R97.20 Elevated prostate specific antigen [PSA]; M89.8X8 Other specified disorders of bone, other site; R39.14 Feeling of incomplete bladder emptying; N17.8 Other acute kidney failure
CPT/HCPCS: 36415; 51702; 71260; 74176; 78306; 80053; 80061; 81001; 83615; 84153; 84439; 84443; 85025; 94760; 96365; 96375; 99284; A4222; A9503; J0696; J7030

== ENCOUNTER 2022-01-28 09:31 | Observation (INO) ==
--- NOTE | 2022-01-28 09:36 | DR.N/VMALE ---
HPI Time Seen Time Seen by Provider: 01/28/22 09:36 HPI Comment HPI Comment: PATIENT IS 86YRS OLD IN ER WITH BELOW HISTORY. Complaints Chief Complaint Doctors Comments: HERE VIA EMS WITH NAUSEA, VOMITING AND GENERALIZED WEAKNESS TIMES 3 DAYS AND DIARRHEA THAT STARTED TODAY. PATIENT EATING POORLY AND IS GETTING WEAKER. SLIGHT CONGESTION AND COUGH, NO DYSURIA [place] FEVER. DENIES TRAVEL OR CONTACT EXPOSURE. DIFUSE INTERMITTENT ABDOMINAL CRAMPING PRESENT. COVID-19 Coronavirus risk:travel/contact w/high risk person: No Has patient experienced Coronavirus symptoms: No Reviewed Nurses Notes Reviewed: Yes Source History Provided: Patient Mode of Arrival Mode of Arrival: EMS Duration Duration: ABD Context Onset: Spontaneous Recent: None History of: None Quality Quality: Food Particles Associated Signs and Symptoms Abdominal Pain Quality: Cramping Abdominal Pain Location: Diffuse Symptoms: Abdominal Pain and Diarrhea PMH PMH Past Medical History: Arthritis and Hypothyroidism Past Surgical History: Yes Surgical History: Bowel Resection Family History Family Medical History: Cancer, [place], Coronary Artery Disease and Hypertension Social History Do you use any recreational Drugs:: No ROS Review of Systems Constitutional: See HPI, Weakness and Fatigue; negative Fever Eyes: No Symptoms Reported and See HPI; negative Blurred Vision ENTM: See HPI and Nose Congestion; negative Nose Discharge Respiratoy: No Symptoms Reported and See HPI; negative Moist Cough, Short of Breath and Wheezing Cardiovascular: No Symptoms Reported and See HPI; negative Chest Pain Gastrointestinal/Abdominal: See HPI, Abdominal Pain and Nausea; negative Constipation, Diarrhea and Vomiting Genitourinary: No Symptoms Reported and See HPI; negative Dysuria Neurological: See HPI and Weakness; negative Headache and Dizziness Musculoskeletal: See HPI and Back Pain Integumentary: No Symptoms Reported and See HPI; negative Rash and Juandice Hematologic/Lymphatic: See HPI and Easy Bruising Endocrine: See HPI and Decreased Appetite; negative Increased Thirst and Increased Urine Psychiatric: No Symptoms Reported and See HPI All Other Systems: Reviewed and Negative PE Vital Signs Vitals: Temperature 99.3 F Pulse Rate 60 Respiratory Rate 18 Blood Pressure [Left Arm] 146/71 Blood Pressure 138/65 O2 Sat by Pulse Oximetry 97 General Limitations: No Limitations General Appearance: Alert and In No Apparent Distress Head Head Exam: Normal Inspection Eyes Eye exam: Normal Appearance; negative Scleral Icterus and Conjunctival Injection ENT ENT Exam: Normal Exam, Normal Oropharynx, Normal External Ear Exam and TM's Normal Bilaterally Neck Neck Exam: Normal Inspection and Trachea Midline; negative Tenderness Chest Chest Inspection: Normal Inspection and Symmetric Chest Wall Rise; negative Tenderness Respiratory Respiratory Exam: Normal Lung Sounds Bilat; negative Accessory Muscle Use, Chest Wall Tenderness and Respiratory Distress Respiratory Exam: Bilateral: Rhonchi, Left: Rales and Lower: Rhonchi Cardiovascular Cardiovascular Exam: Regular Rate, Normal Rhythm and Normal Heart Sounds; negative Systolic Murmur and Diastolic Murmur Abdominal Exam Abdominal Exam: Normal Inspection, Normal Bowel Sounds, Soft and Tenderness Abdominal Tenderness: Diffuse and Mild Rectal Rectal Exam: Deferred Exam: Male: Deferred Extremities Extremities Exam: Normal Inspection Back Back Exam: Normal Inspection; negative (R) CVA Tenderness and (L) CVA Tenderness Neurologic Neurological Exam: Alert and Oriented X3; negative Motor Sensory Deficit Psychiatric Psychiatric Exam: Normal Affect and Anxious Skin Skin Exam: Dry MDM Additional Information Obtained Additional Information Obtained From: Old Records Differential Diagnosis Differential Diagnosis: Considerations may Include:: Bowel Obstruction, Cholecystitis, Gastroenteritis, Inflammatory BD, Pancreatitis, PUD, Urinary Tract Infection and Urolithiasis Differential Diagnosis Comment: PNEUMONIA, BRONCHITIS, SINUSITIS. COURSE Treatment Treatment: SEE ORDERS DONE WHILE PATIENT WAS IN ER. LABS AND XRAY REPORT DISCUSSED. PATIENT WILL BE ADMITTED TO HOSPITAL FOR FURTHER MANAGEMENT. Consultation Consultation Comments: DISCUSSED PATIENT WITH DR. DU. HE WILL ADMIT P ATIENT. Education/Counseling Education/Counseling: Patient Educated On: Diagnosis and Needs for Follow Up ROR Labs Reviewed Laboratory Results Reviewed?: Yes Result Diagrams: 01/30/22 07:05 01/30/22 07:05 Laboratory: 01/28/22 13:52 Blood Blood Culture - Final 01/28/22 13:41 Blood Blood Culture - Final WBC 8.0 X10^3/uL (3.6-10.0) 01/28/22 10:10 RBC 4.24 X10^6/uL (4.7-6.0) L 01/28/22 10:10 Hgb 12.5 g/dL (13.5-18.0) L 01/28/22 10:10 Hct 37.2 % (42.0-54.0) L 01/28/22 10:10 MCV 87.9 fL (80.0-100.0) 01/28/22 10:10 MCH 29.5 pg (27.0-34.0) 01/28/22 10:10 MCHC 33.6 g/dL (33.0-35.0) 01/28/22 10:10 RDW 14.2 % (11.6-16.5) 01/28/22 10:10 Plt Count 148 X10^3/uL (150.0-450.0) L 01/28/22 10:10 MPV 8.9 fL (7.4-11.0) 01/28/22 10:10 Neut % (Auto) 79.1 % (42.0-75.0) H 01/28/22 10:10 Lymph % (Auto) 7.4 % (21.0-51.0) L 01/28/22 10:10 [place] % (Auto) 13.0 % (0.0-13.0) 01/28/22 10:10 Eos % (Auto) 0.1 % (0.9-2.9) L 01/28/22 10:10 Baso % (Auto) 0.4 % (0.2-1.0) 01/28/22 10:10 Neut # (Auto) 6.4 x10^3/uL (2.2-4.8) H 01/28/22 10:10 Lymph # (Auto) 0.6 X10^3/uL (1.3-2.9) L 01/28/22 10:10 [place] # (Auto) 1.0 x10^3/uL (0.3-0.8) H 01/28/22 10:10 Eos # (Auto) 0.0 x10^3/uL (0.0-0.2) 01/28/22 10:10 Baso # (Auto) 0.0 X10^3/uL (0.0-0.1) 01/28/22 10:10 Absolute Nucleated RBC 0.1 /100WBC 01/28/22 10:10 Sodium 135 mmol/L (136-145) L 01/28/22 10:10 Corrected Sodium 135 mmol/L (136-145) L 01/28/22 10:10 Potassium 3.9 mmol/L (3.5-5.1) 01/28/22 10:10 Chloride 103 mmol/L (98-107) 01/28/22 10:10 Carbon Dioxide 26.2 mmol/L (21-32) 01/28/22 10:10 BUN 29 mg/dL (7-18) H 01/28/22 10:10 Creatinine 1.16 mg/dL (0.70-1.30) 01/28/22 10:10 Est GFR (MDRD) Af Amer > 60 (>60) 01/28/22 10:10 Est GFR (MDRD) Non-Af > 60 (>60) 01/28/22 10:10 Glucose 115 mg/dL (65-99) H 01/28/22 10:10 Calcium 7.9 mg/dL (8.5-10.1) L 01/28/22 10:10 Corrected Calcium 8.9 mg/dL (8.5-10.1) 01/28/22 10:10 Total Bilirubin 0.40 mg/dL (0.2-1.0) 01/28/22 10:10 AST 22 Units/L (15-37) 01/28/22 10:10 ALT 15 Units/L (12-78) 01/28/22 10:10 Alkaline Phosphatase 60 Units/L (46-116) 01/28/22 10:10 Total Protein 6.3 g/dL (6.4-8.2) L 01/28/22 10:10 Albumin 2.7 g/dL (3.4-5.0) L 01/28/22 10:10 Globulin 3.6 g/dL (2.5-4.5) 01/28/22 10:10 Albumin/Globulin Ratio 0.8 Ratio (1.1-2.1) L 01/28/22 10:10 Amylase 54 Units/L (25-115) 01/28/22 10:10 Lipase 133 Units/L (73-393) 01/28/22 10:10 SARS-CoV-2 (PCR) Negative (NEGATIVE) 01/28/22 13:54 XRAY XRAY Interpreted by: Radiologist (REPORT NOTED.) and Self Opioid Opioid Risk Tool Age (Cr box if 16-45): No Total: 0 Total Score Risk Category: Low Risk Copyright: [facility] predicting aberrant behaviors Diagnosis Discharge Problem: Gastroenteritis, Dehydration Pneumonia Qualifiers: Pneumonia type: due to unspecified organism Laterality: left Lung location: lower lobe of lung Qualified Code(s): J18.9 - Pneumonia, unspecified organism Instructions Instructions: Fall Prevention in the Home, Adult, Tgsl-[id number] Viral Gastroenteritis, Adult Rehydration, Elderly Dehydration, Elderly, [place]-jk-[place]ow[place] Community-Acquired Pneumonia, Adult, [id number]-[id number] Forms: Precautions for COVID19 [facility] Patient Portal Social Distancing
[2022-01-28] MEDS ORDERED: ZOFRAN INJ 4 MG VIAL IVP ONE (10:00)
[2022-01-28] MEDS ORDERED: NS 1,000 ML IV 1,000 ML ONE (10:08)
[2022-01-28] MEDS ORDERED: ZOFRAN INJ 4 MG VIAL ONE (10:08)
[2022-01-28] MEDS: NS 1,000 ML IV 1,000 ML IV SCH ×3 (10:10→18:10)
[2022-01-28 10:38] LABS: BASOPHILS % (AUTO) 0.4 % (0.2-1.0); EOSINOPHILS % (AUTO) 0.1 % (0.9-2.9); HEMATOCRIT 37.2 % (42.0-54.0); HEMOGLOBIN 12.5 g/dL (13.5-18.0); LYMPHOCYTES # (AUTO) 0.6 X10^3/uL (1.3-2.9); LYMPHOCYTES % (AUTO) 7.4 % (21.0-51.0); MEAN CORPUSCULAR HEMOGLOBIN 29.5 pg (27.0-34.0); MEAN CORPUSCULAR HGB CONC 33.6 g/dL (33.0-35.0); MEAN CORPUSCULAR VOLUME 87.9 fL (80.0-100.0); MEAN PLATELET VOLUME 8.9 fL (7.4-11.0); NEUTROPHILS # (AUTO) 6.4 x10^3/uL (2.2-4.8); NEUTROPHILS % (AUTO) 79.1 % (42.0-75.0); RED BLOOD COUNT 4.24 X10^6/uL (4.7-6.0); RED CELL DISTRIBUTION WIDTH 14.2 % (11.6-16.5)
[2022-01-28 10:46] LABS: BLOOD UREA NITROGEN 29 mg/dL (7-18); CALCIUM 7.9 mg/dL (8.5-10.1); CARBON DIOXIDE 26.2 mmol/L (21-32); CHLORIDE 103 mmol/L (98-107); COR NA(FOR HYPERGLY) 135 mmol/L (136-145); CREATININE 1.16 mg/dL (0.70-1.30); SODIUM 135 mmol/L (136-145); eGFR NON BLACK RACES > 60 (>60)
[2022-01-28 10:53] LABS: AMYLASE 54 Units/L (25-115); LIPASE 133 Units/L (73-393)
--- NOTE | 2022-01-28 12:27 | CT ---
HISTORYWeakness, dizziness, diarrheaSTUDYCT abdomen pelvis without contrastTechnique: Axial noncontrast images with coronal and sagittal reformats. Dose reduction procedures were used with mA/kv adjusted for body size. THIS EXAMINATION IS LIMITED DUE TO THE LACK OF INTRAVENOUS AND ORAL CONTRAST. The examination was performed in this manner at the sole discretion of the ordering caregiver.QDFEYOMUNG26/13/2019 reportFINDINGSRight lung base is clear. There is dense alveolar pneumonia posteriorly in the left lower lobe. The liver, spleen, adrenal glands, and pancreas are within normal limits only to the limitations of an unenhanced examination. No opaque stones are present within the gallbladder. The kidneys are unobstructed and without stones. No ureteral calculi are identified. Mild calcific atherosclerotic changes present in a nondilated abdominal aorta. No intraperitoneal or retroperitoneal lymphadenopathy of significance is identified. The appendix is not identified. There are no secondary signs of appendicitis present. There are no findings suggestive of enteritis, colitis, or diverticulitis. There is slight increased attenuation in the fat at the root of the small bowel mesentery which can be seen with acute and chronic mesenteritis which is a nonspecific inflammatory process. Diverticulosis of the descending and sigmoid colon identified. Examination of the pelvis demonstrated the bladder to be mildly distended. No other abnormalities identified in the bladder. The prostate gland is enlarged. No pelvic masses, pelvic fluid, or pelvic lymphadenopathy is identified. No significant lytic or blastic skeletal lesions of significance are identified.IMPRESSIONDense alveolar segmental left lower lobe pneumoniaNo evidence for enteritis, colitis, or diverticulitisEnlarged prostate gland possibly contributing to some mild bladder outlet obstruction. Correlation with serum PSA is recommended.Electronically signed by: TARIK FINK (January 28, 2022 12:26:00)
[2022-01-28] MEDS ORDERED: ROCEPHIN 1 GRAM IV PREMIX 1 G/50 ML IV.SOLN. IV ONE ×2 (13:49→14:02)
[2022-01-28] MEDS ORDERED: SALINE 3% 15 ML NEB TX NEB ONE (16:00)
[2022-01-28] MEDS: DUONEB 0.5 MG/3 MG (3 mL) NEB SCH ×2 (16:10→20:46)
[2022-01-28] MEDS: PULMICORT NEB TX 0.5 MG NEB SCH (20:46)
[2022-01-28 23:30] LABS: BILIRUBIN,URINE NEGATIVE (NEGATIVE); BLOOD/HEMOGLOBIN,URINE 1+ (NEGATIVE); GLUCOSE, URINE NEGATIVE (NEGATIVE); KETONES,URINE NEGATIVE (NEGATIVE); LEUKOCYTE ESTERASE ,URINE NEGATIVE (NEGATIVE); NITRITES,URINE NEGATIVE (NEGATIVE); PROTEIN,URINE 2+ (NEGATIVE); UROBILINOGEN,URINE NORMAL (NORMAL)
[2022-01-28 23:39] LABS: APPEARANCE,URINE CLEAR (CLEAR); COLOR,URINE YELLOW (YELLOW)
[2022-01-28 23:40] LABS: BACTERIA,URINE NEGATIVE /HPF (NEGATIVE); RBC,URINE 0-2 /HPF (0-3); SQUAMOUS EPITHELIAL CELL,UR FEW /HPF (NEGATIVE)
--- NOTE | 2022-01-29 01:37 | DR.H&P ---
H&P - History & Physical for Day of: H&P Date: 01/28/22 - Chief Complaint Chief Complaint: N/V, weakness - History of Present Illness History of Present Illness: Patient is an 86 year old very healthy adult male who isbeing admitted due to nausea, vomiting, and weakess. Patient reports he worked outside Friday when it was hot. States he later began with nausea, diarrhea, vomiting and dizzines. States these symptoms last a few days (overthe weekend). States he felt so bad this am and family was aorried about him so he came to the ER. States since being treated in ER and receiving fluids he feels much better. States he feels he was dehydrated. Denies SOB, CP, diaphoresis, syncope. No major medical history. - Past Medical History Past Medical History: Hypothyroidism, Arthritis - Past Surgical History Surgical History: Other - Family History Family Medical History: [place] - Social History Does patient currently use any type of tobacco product: No Have you used tobacco products in the last 12 months: No Type of Tobacco Use: None Does any household member use tobacco: No Alcohol Use: None Drug Use: None - Medications Home Medications: No Known Drug Allergies Allergy (Verified 12/02/18 11:45) - Review of Systems Constitutional: See HPI Eyes: See HPI ENT: See HPI Respiratory: See HPI Cardiovascular: See HPI Gastrointestinal: See HPI Genitourinary: See HPI Musculoskeletal: See HPI Skin: See HPI Neurological: See HPI - Physical Exam Vital Signs: Temperature 98.6 F Pulse Rate [Right Brachial] 68 Pulse Rate 96 Respiratory Rate 20 Blood Pressure [Right Arm] 121/61 Blood Pressure [Left Arm] 146/71 Blood Pressure 138/65 O2 Sat by Pulse Oximetry 98 Oriented: Normal, Time, Person, Place Eyes: Normal Ear: Normal Nose: Normal Throat: Normal Respiratory: LLL Rhonchi, LLL Rales Cardiovascular: Normal : Normal Auscultation: Bowel Sounds: Normal Palpation: Normal Tenderness: Normal Skin: Normal Musculoskeletal: Normal Psychiatric: Normal Mood Description: Calm Affect: Normal Speech Pattern: Clear, Appropriate - Assessment/Plan (1) Nausea & vomiting Status: Acute Plan: Admit. IV hydration. IV abx. repeat las and cxr in am. see emr for further orders (2) Diarrhea Status: Acute (3) Pneumonia Status: Acute (4) Gastroenteritis Status: Acute (5) Dehydration Status: Acute - Allergies Allergies/Adverse Reactions: Allergies Allergy/AdvReac Type Severity Reaction Status Date / Time No Known Drug Allergies Allergy Verified 12/02/18 11:45
[2022-01-29] MEDS: NS 1,000 ML IV 1,000 ML IV SCH ×3 (03:28→22:32)
[2022-01-29 06:03] LABS: BASOPHILS % (AUTO) 0.4 % (0.2-1.0); EOSINOPHILS % (AUTO) 0.8 % (0.9-2.9); HEMATOCRIT 34.6 % (42.0-54.0); HEMOGLOBIN 11.8 g/dL (13.5-18.0); LYMPHOCYTES # (AUTO) 0.6 X10^3/uL (1.3-2.9); LYMPHOCYTES % (AUTO) 10.3 % (21.0-51.0); MEAN CORPUSCULAR HEMOGLOBIN 29.7 pg (27.0-34.0); MEAN CORPUSCULAR HGB CONC 34.2 g/dL (33.0-35.0); MEAN CORPUSCULAR VOLUME 86.7 fL (80.0-100.0); MONOCYTES # (AUTO) 0.7 x10^3/uL (0.3-0.8); MONOCYTES % (AUTO) 13.9 % (0.0-13.0); NEUTROPHILS % (AUTO) 74.6 % (42.0-75.0); RED BLOOD COUNT 3.99 X10^6/uL (4.7-6.0); RED CELL DISTRIBUTION WIDTH 14.6 % (11.6-16.5); WHITE BLOOD COUNT 5.4 X10^3/uL (3.6-10.0)
[2022-01-29 06:08] LABS: BLOOD UREA NITROGEN 21 mg/dL (7-18); CALCIUM 7.8 mg/dL (8.5-10.1); CHLORIDE 104 mmol/L (98-107); COR NA(FOR HYPERGLY) 136 mmol/L (136-145); CREATININE 0.95 mg/dL (0.70-1.30); SODIUM 136 mmol/L (136-145); eGFR NON BLACK RACES > 60 (>60)
--- NOTE | 2022-01-29 07:32 | RAD ---
HISTORYFollow-up left lower lobe pneumoniaSTUDYChest PA and lateralCOMPARISONCT abdomen pelvis 01/28/2022FINDINGSHeart size is normal. Laura are normal. Lungs are well inflated. Right lung and left upper lung mcmahon are clear. Left lower lobe infiltrate is present and best demonstrated overlying the spine on the lateral view. It is not quite as well visualized as on the recent CT abdomen pelvis due to its far posterior inferior position. No pleural effusions are identified. Bony thorax is unremarkable.IMPRESSIONLeft lower lobe pneumonia is present but not as well demonstrated as on the recent CT abdomen pelvisElectronically signed by: TARIK FINK (January 29, 2022 07:30:45)
[2022-01-29] MEDS: ROCEPHIN 1 GRAM IV PREMIX 1 G/50 ML IV.SOLN. IV SCH (08:24)
[2022-01-29] MEDS: MICRO K EXTEN CAP 10 MEQ PO SCH (08:24)
[2022-01-29 08:35] VITALS: BMI 25.4
[2022-01-29] MEDS: DUONEB 0.5 MG/3 MG (3 mL) NEB SCH ×4 (09:05→21:25)
[2022-01-29] MEDS: PULMICORT NEB TX 0.5 MG NEB SCH ×2 (09:05→21:25)
[2022-01-29] MEDS: LOVENOX INJ 40 MG SYR SC SCH (10:28)
[2022-01-29 21:22] LABS: ALANINE AMINOTRANSFERASE 15 Units/L (12-78); ALBUMIN 2.4 g/dL (3.4-5.0); ALKALINE PHOSPHATASE 53 Units/L (46-116); ASPARTATE AMINO TRANSFERASE 24 Units/L (15-37); COR CA(FOR HYPOALB) 9.1 mg/dL (8.5-10.1); TOTAL PROTEIN 5.9 g/dL (6.4-8.2)
[2022-01-29] MEDS ORDERED: RESTORIL CAP 15 MG PO PRN (21:22)
[2022-01-29 22:22] LABS: ALANINE AMINOTRANSFERASE 15 Units/L (12-78); ALBUMIN 2.7 g/dL (3.4-5.0); ALKALINE PHOSPHATASE 60 Units/L (46-116); ASPARTATE AMINO TRANSFERASE 22 Units/L (15-37); COR CA(FOR HYPOALB) 8.9 mg/dL (8.5-10.1); TOTAL PROTEIN 6.3 g/dL (6.4-8.2)
[2022-01-30] MEDS: NS 1,000 ML IV 1,000 ML IV SCH ×2 (05:40→11:18)
[2022-01-30 07:28] LABS: BASOPHILS % (AUTO) 0.5 % (0.2-1.0); EOSINOPHILS # (AUTO) 0.2 x10^3/uL (0.0-0.2); EOSINOPHILS % (AUTO) 3.5 % (0.9-2.9); HEMATOCRIT 34.5 % (42.0-54.0); HEMOGLOBIN 11.7 g/dL (13.5-18.0); LYMPHOCYTES # (AUTO) 0.5 X10^3/uL (1.3-2.9); LYMPHOCYTES % (AUTO) 9.7 % (21.0-51.0); MEAN CORPUSCULAR HEMOGLOBIN 29.3 pg (27.0-34.0); MEAN CORPUSCULAR HGB CONC 33.8 g/dL (33.0-35.0); MEAN CORPUSCULAR VOLUME 86.6 fL (80.0-100.0); MEAN PLATELET VOLUME 9.5 fL (7.4-11.0); MONOCYTES # (AUTO) 0.9 x10^3/uL (0.3-0.8); MONOCYTES % (AUTO) 19.2 % (0.0-13.0); NEUTROPHILS # (AUTO) 3.1 x10^3/uL (2.2-4.8); NEUTROPHILS % (AUTO) 67.1 % (42.0-75.0); RED BLOOD COUNT 3.99 X10^6/uL (4.7-6.0); RED CELL DISTRIBUTION WIDTH 14.3 % (11.6-16.5); WHITE BLOOD COUNT 4.7 X10^3/uL (3.6-10.0)
[2022-01-30 07:41] LABS: ALANINE AMINOTRANSFERASE 17 Units/L (12-78); ALBUMIN 2.3 g/dL (3.4-5.0); ALKALINE PHOSPHATASE 58 Units/L (46-116); ASPARTATE AMINO TRANSFERASE 27 Units/L (15-37); BLOOD UREA NITROGEN 15 mg/dL (7-18); CARBON DIOXIDE 26.9 mmol/L (21-32); CHLORIDE 104 mmol/L (98-107); COR CA(FOR HYPOALB) 9.4 mg/dL (8.5-10.1); CREATININE 0.84 mg/dL (0.70-1.30); SODIUM 136 mmol/L (136-145); TOTAL PROTEIN 6.1 g/dL (6.4-8.2); eGFR NON BLACK RACES > 60 (>60)
[2022-01-30] MEDS: MICRO K EXTEN CAP 10 MEQ PO SCH (08:15)
[2022-01-30] MEDS: ROCEPHIN 1 GRAM IV PREMIX 1 G/50 ML IV.SOLN. IV SCH (08:15)
[2022-01-30] MEDS: LOVENOX INJ 40 MG SYR SC SCH (08:15)
[2022-01-30] MEDS: DUONEB 0.5 MG/3 MG (3 mL) NEB SCH (08:30)
[2022-01-30] MEDS: PULMICORT NEB TX 0.5 MG NEB SCH (08:30)
[2022-01-30 11:50] VITALS: BP 135/76
[2022-02-01] MEDS ORDERED: VITAMIN D (1.25MG) PO SCH (09:00)
[2022-02-18] MEDS ORDERED: CYANOCOBALAMIN 1000 MCG/ML IM SCH (09:00)
--- NOTE | 2022-02-21 13:18 | PCM.DCPLAN ---
Discharge Plan - Discharge Plan Hospital Course: Admit date 01/28/22 Discharge date 01/30/22 DOS 01/30/22 Admit Diagnosis(1) Nausea & vomiting (2) Diarrhea (3) Pneumonia (4) Gastroenteritis (5) Dehydration Discharge Diagnosis SAME Hospital Course Patient is an 86 year old very healthy adult male who is being admitted due to nausea, vomiting, and weakness. Patient reports he worked outside Friday when it was hot. States he later began with nausea, diarrhea, vomiting and dizziness. States these symptoms lasted a few days (over the weekend). States he felt so bad this am and family was worried about him so he came to the ER. States since being treated in ER and receiving fluids he feels much better. States he feels he was dehydrated. Denies SOB, CP, diaphoresis, syncope. No major medical history. Cultures were negative. Labs returned to baseline. Patient was treated with IV fluids and IV abx for pneumonia. Patient symptoms resolved, cxr improved. Patient was discharged home on po abx and instructed to follow up in office with pcp in 1 week. Greater than 35 mins spent on discharge. Disposition: 01 HOME, SELF-CARE Condition: Stable Health Concerns: Post Hospitalization: new medications and changes needed to prevent readmission or further decline. Pt educated and given instructions on all concerns. Care Plan Goals: Problem: Infection Goal: Temperature within normal limits. Resolved infection. Instructions: Follow provided instructions. Follow up with primary physician as directed. Contact primary care physician or report to the closest Emergency Room if condition worsens. Plan of Treatment: Continue with present treatment and follow up plan. Pt is to keep follow up appointment as instructed and take medications as ordered. Prescriptions: Continued cyanocobalamin (vitamin B-12) 1,000 mcg/mL Kit 1 ml IM MONTHLY ergocalciferol (vitamin D2) [Vitamin D2] 50,000 unit Capsule 50,000 tab-cap PO DAILY potassium chloride 10 mEq tablet extended release 10 meq PO DAILY - Orders to Discharge Patient Discharge Orders: Discharge (Routine); Ordered 01/30/22 Ordered By: Nakia Cross - Follow ups/Referrals Follow ups/Referrals: MATTHEW MESA [Primary Care Provider] - 02/06/22 9:15 am - Instructions Instructions: Fall Prevention in the Home, Adult, Amph-xk-[id number], Viral Gastroenteritis, Adult, Rehydration, Elderly, Dehydration, Elderly, Glmm-il-Aawv, Community-Acquired Pneumonia, Adult, Lmxh-bk-Vsmj Forms: Precautions for [facility], Patient Portal, Social Distancing Print Language: ARMENIAN - Patient Education Addl Reference Links: Pneumonia [email or web address] [email or web address]&language=en&patientPerson.administrativeGenderCode .c=M&patientPerson.administrativeGenderCode.dn=Male&age.v.v=86&age.v.u=a&perform er=PROV&informationRecipient=PAT&performer.languageCode.c=en&mainSearchCriteria. v.o=[id number]&mainSearchCriteria.v.cs=2. [id number]&mainSearchCriteria.v.dn=Pneumonia&mainSearchCriteria.v.c1=4 86&mainSearchCriteria.v.cs1=[id number]&mainSearchCriteria.v.dn1=Pne umonia&mainSearchCriteria.v.c2=J18.9&martita nSearchCriteria.v.cs2=[id number]&mainSearchCriteria.v.dn2=Pneumonia& l=[id number]
--- NOTE | 2022-02-21 13:22 | PCM.PROG ---
Progress Note - Progress Note for Day of Date of Exam: 01/29/22 - Subjective Subjective: Patient is a 86 year old male who is being admitted as per HPI. Patient reports improvement in symptoms. No new concerns at present. Patient being treated for pneumonia with IV abx. - Past Medical Family Social History Past Med/Fam/Surg Hx: No changes since H&P Allergies: Allergies No Known Drug Allergies Allergy (Verified 12/02/18 11:45) - Review of Systems ROS: No change since H&P - Vital Signs and I&O's Vital Signs: Temperature 98.4 F Pulse Rate [Right Brachial] 78 Pulse Rate 76 Respiratory Rate 20 Blood Pressure [Right Arm] 135/76 Blood Pressure [Left Arm] 146/71 Blood Pressure 138/65 O2 Sat by Pulse Oximetry 95 - Physical Exam Oriented: Normal, Time, Person, Place Eyes: Normal Ear: Normal Nose: Normal Throat: Normal Respiratory: Normal Cardiovascular: Normal : Normal Auscultation: Bowel Sounds: Normal Palpation: Normal Tenderness: Normal Skin: Normal Musculoskeletal: Normal Psychiatric: Normal Mood Description: Calm Affect: Normal Speech Pattern: Clear, Appropriate - Laboratory and Diagnostics Result Diagrams: 01/30/22 07:05 01/30/22 07:05 Labs: 01/28/22 13:52 Blood Blood Culture - Final 01/28/22 13:41 Blood Blood Culture - Final Laboratory WBC 4.7 X10^3/uL (3.6-10.0) 01/30/22 07:05 RBC 3.99 X10^6/uL (4.7-6.0) L 01/30/22 07:05 Hgb 11.7 g/dL (13.5-18.0) L 01/30/22 07:05 Hct 34.5 % (42.0-54.0) L 01/30/22 07:05 MCV 86.6 fL (80.0-100.0) 01/30/22 07:05 MCH 29.3 pg (27.0-34.0) 01/30/22 07:05 MCHC 33.8 g/dL (33.0-35.0) 01/30/22 07:05 RDW 14.3 % (11.6-16.5) 01/30/22 07:05 Plt Count 170 X10^3/uL (150.0-450.0) 01/30/22 07:05 MPV 9.5 fL (7.4-11.0) 01/30/22 07:05 Neut % (Auto) 67.1 % (42.0-75.0) 01/30/22 07:05 Lymph % (Auto) 9.7 % (21.0-51.0) L 01/30/22 07:05 [place] % (Auto) 19.2 % (0.0-13.0) H 01/30/22 07:05 Eos % (Auto) 3.5 % (0.9-2.9) H 01/30/22 07:05 Baso % (Auto) 0.5 % (0.2-1.0) 01/30/22 07:05 Neut # (Auto) 3.1 x10^3/uL (2.2-4.8) 01/30/22 07:05 Lymph # (Auto) 0.5 X10^3/uL (1.3-2.9) L 01/30/22 07:05 [place] # (Auto) 0.9 x10^3/uL (0.3-0.8) H 01/30/22 07:05 Eos # (Auto) 0.2 x10^3/uL (0.0-0.2) 01/30/22 07:05 Baso # (Auto) 0.0 X10^3/uL (0.0-0.1) 01/30/22 07:05 Absolute Nucleated RBC 0.2 /100WBC 01/30/22 07:05 Sodium 136 mmol/L (136-145) 01/30/22 07:05 Corrected Sodium TNP 01/30/22 07:05 Potassium 4.4 mmol/L (3.5-5.1) 01/30/22 07:05 Chloride 104 mmol/L (98-107) 01/30/22 07:05 Carbon Dioxide 26.9 mmol/L (21-32) 01/30/22 07:05 BUN 15 mg/dL (7-18) 01/30/22 07:05 Creatinine 0.84 mg/dL (0.70-1.30) 01/30/22 07:05 Est GFR (MDRD) Af Amer > 60 (>60) 01/30/22 07:05 Est GFR (MDRD) Non-Af > 60 (>60) 01/30/22 07:05 Glucose 108 mg/dL (65-99) H 01/30/22 07:05 Calcium 8.0 mg/dL (8.5-10.1) L 01/30/22 07:05 Corrected Calcium 9.4 mg/dL (8.5-10.1) 01/30/22 07:05 Total Bilirubin 0.40 mg/dL (0.2-1.0) 01/30/22 07:05 AST 27 Units/L (15-37) 01/30/22 07:05 ALT 17 Units/L (12-78) 01/30/22 07:05 Alkaline Phosphatase 58 Units/L (46-116) 01/30/22 07:05 Total Protein 6.1 g/dL (6.4-8.2) L 01/30/22 07:05 Albumin 2.3 g/dL (3.4-5.0) L 01/30/22 07:05 Globulin 3.8 g/dL (2.5-4.5) 01/30/22 07:05 Albumin/Globulin Ratio 0.6 Ratio (1.1-2.1) L 01/30/22 07:05 Amylase 54 Units/L (25-115) 01/28/22 10:10 Lipase 133 Units/L (73-393) 01/28/22 10:10 Specimen Type Clean catch urine 01/28/22 23:15 Urine Color Yellow (YELLOW) 01/28/22 23:15 Urine Appearance Clear (CLEAR) 01/28/22 23:15 Urine pH 6.0 (5.0 - 8.0) 01/28/22 23:15 Ur Specific [place] 1.025 (1.000-1.030) 01/28/22 23:15 Urine Protein 2+ (NEGATIVE) 01/28/22 23:15 Urine Glucose (UA) Negative (NEGATIVE) 01/28/22 23:15 Urine Ketones Negative (NEGATIVE) 01/28/22 23:15 Urine Blood 1+ (NEGATIVE) 01/28/22 23:15 Urine Nitrite Negative (NEGATIVE) 01/28/22 23:15 Urine Bilirubin Negative (NEGATIVE) 01/28/22 23:15 Urine Urobilinogen Normal (NORMAL) 01/28/22 23:15 Ur Leukocyte Esterase Negative (NEGATIVE) 01/28/22 23:15 Urine RBC 0-2 /HPF (0-3) 01/28/22 23:15 Urine WBC None seen /HPF (0-5) 01/28/22 23:15 Ur Squamous Epith Cells Few /HPF (NEGATIVE) 01/28/22 23:15 Amorphous Sediment Trace /HPF (NEGATIVE) 01/28/22 23:15 Urine Bacteria Negative /HPF (NEGATIVE) 01/28/22 23:15 Urine Mucus Few /HPF (NEGATIVE) 01/28/22 23:15 Ur Culture Indicated? No/not indicated 01/28/22 23:15 SARS-CoV-2 (PCR) Negative (NEGATIVE) 01/28/22 13:54 - Plan (1) Nausea & vomiting Status: Acute Plan: Admit. IV hydration. IV abx. repeat las and cxr in am. see emr for further orders (2) Diarrhea Status: Acute (3) Pneumonia Status: Acute Qualifiers: Pneumonia type: due to unspecified organism Laterality: left Lung location: lower lobe of lung Qualified Code(s): J18.9 - Pneumonia, unspecified organism Plan: IV abx. Culltures pending (4) Gastroenteritis Status: Acute (5) Dehydration Status: Acute
== END 2022-01-30 15:55 | disposition home or self-care (01) ==
LOC: SUPCPDRO → ER 09:31 → MED/SURG 09:31
PROVIDERS: ADMIT Internal Medicine; ATTEND Internal Medicine
DX: R11.2 Nausea with vomiting, unspecified; J18.8 Other pneumonia, unspecified organism; N40.0 Benign prostatic hyperplasia without lower urinary tract symptoms; Z20.822 Contact with and (suspected) exposure to COVID-19; E03.8 Other specified hypothyroidism; K52.89 Other specified noninfective gastroenteritis and colitis; E86.0 Dehydration; M19.90 Unspecified osteoarthritis, unspecified site; R53.1 Weakness